=== PATIENT | male | born 1970 | race Two or more races ===

== ENCOUNTER 2019-04-25 21:20 | Emergency (ER) | payer OTHER ==
[~2019-04-25] VITALS: Ht 182.9 cm; Wt 79.1 kg
[2019-04-25 21:39] VITALS: BP 101/73
== END 2019-04-26 00:47 | disposition home or self-care (01) ==
LOC: ER 21:25
DX: S01.81XA Laceration without foreign body of other part of head, initial encounter (principal); V89.0XXA Person injured in unspecified motor-vehicle accident, nontraffic, initial encounter; Y93.89 Activity, other specified; Y99.0 Civilian activity done for income or pay; Y92.89 Other specified places as the place of occurrence of the external cause
CPT/HCPCS: 12013; 70450

== ENCOUNTER 2021-04-01 10:24 | Emergency (ER) | payer OTHER ==
[~2021-04-01] VITALS: Ht 182.9 cm; Wt 79.4 kg
[2021-04-01] MEDS ORDERED: MORPHINE SULFATE INJECTION 2 MG/ML SYRG IV ONE (12:00)
[2021-04-01] MEDS ORDERED: ONDANSETRON HCL 4 MG/2 ML VIAL IV ONE (12:00)
[2021-04-01] MEDS ORDERED: ceFAZolin 1GM/50ML 50 ML IV ONE (12:00)
[2021-04-01 17:09] VITALS: BP 146/91
== END 2021-04-01 17:11 | disposition short-term general hospital (02) ==
LOC: ER 10:24
DX: S60.552A Superficial foreign body of left hand, initial encounter (principal); W26.8XXA Contact with other sharp object(s), not elsewhere classified, initial encounter; Y93.89 Activity, other specified; Y92.89 Other specified places as the place of occurrence of the external cause; Y99.0 Civilian activity done for income or pay
CPT/HCPCS: 73120; 96365; 96375; 99285; J0690; J2270; J2405